=== PATIENT | male | born 1965 | race African-American/Black ===

== ENCOUNTER 2016-04-14 12:15 | Inpatient (IN) | payer OTHER ==
[2016-04-14 13:04] VITALS: BMI 25.5
--- NOTE | 2016-04-14 14:32 | HP ---
COWS - Scale Resting Pulse: 0= [place] 80 or Below Sweatin=Flushed/Facial Moisture Restless Observation: 3= Extraneous Movement Pupil Size: 2= Moderately Dilated Bone or Joint Aches: 2= Severe Diffuse Aches Runny Nose/ Eye Tearin= Runny Nose/Eyes GI Upset > 30mins: 3= Vomiting/Diarrhea Tremor Observation: 2= Slight Tremor Visible Yawning Observation: 2= >3x During Session Anxiety or Irritability: 2=Irritable/Anxious Goose Flesh Skin: 0=Smooth Skin COWS Score: 20 CIWA Score - CIWA Score Nausea/Vomitin Muscle Tremors: 3 Anxiety: 3 Agitation: 3 Paroxysmal Sweats: 2 Orientation: 0-Oriented Tacttile Disturbances: 2-Mild Itch/Numbness/Burn Auditory Disturbances: 2-Mild Harshness/Frighten Visual Disturbances: 2-Mild Sensitivity Headache: 2-Mild CIWA-Ar Total Score: 22 Admission ROS BHS - HPI Chief Complaint: I NEED HELP TO STOP USING HEROIN,ALCOHOL AND COCAINE,WITHDRAWAL SYMPTOM,LAST DETOX 08/05/14 TO 06/08/14 WEIGHT LOSS HIV SINCE 2001 NICOTINE DEPENDENCE LONGEST PERIOD OF SOBRIETY 2 YEARS LOW BACK PAIN Allergies/Adverse Reactions: Allergies Allergy/AdvReac Type Severity Reaction Status Date / Time No Known Allergies Allergy Verified 04/14/16 14:24 History of Present Illness: THIS 50 YEARS OLD MALE WITH HEROIN ,ALCOHOL,COCAINE DEPENDENCE FOR DETOX MENTIONED Exam Limitations: No Limitations - Ebola screening Have you traveled outside of the country in the last 21 days: No Have you had contact with anyone from an Ebola affected area: No Have you been sick,other than usual withdrawal symptoms: No Do you have a fever: No - Review of Systems Constitutional: Chills, Diaphoresis, Night Sweats, Changes in sleep, Weakness, Unintentional Wgt. Loss EENT: reports: Tearing, Nose Congestion Respiratory: reports: No Symptoms reported Cardiac: reports: Palpitations GI: reports: Diarrhea, Nausea, Vomiting, Abdominal cramping : reports: No Symptoms Reported Musculoskeletal: reports: Back Pain, Muscle Pain Integumentary: reports: Dryness Neuro: reports: Headache, Tremors Endocrine: reports: No Symptoms Reported Hematology: reports: No Symptoms Reported Psychiatric: reports: No Sypmtoms Reported Patient History - Patient Medical History Hx Anemia: No Hx Asthma: No Hx Chronic Obstructive Pulmonary Disease (COPD): No Hx Cancer: No Hx Cardiac Disorders: No Hx Congestive Heart Failure: No Hx Hypertension: No Hx Hypercholesterolemia: No Hx Pacemaker: No HX Cerebrovascular Accident: No Hx Seizures: No Hx Dementia: No Hx Diabetes: No Hx Gastrointestinal Disorders: No Hx Liver Disease: No Hx Genitourinary Disorders: No Hx Sexually Transmitted Disorders: No Hx Renal Disease (ESRD): No Hx Thyroid Disease: No Hx Human Immunodeficiency Virus (HIV): Yes (SINCE 2001) Hx Hepatitis C: No Hx Depression: No Hx Suicide Attempt: No Hx Bipolar Disorder: No Hx Schizophrenia: No Other Medical History: NO SUICIDAL,NO HOMICIDAL - Patient Surgical History Past Surgical History: No Hx Neurologic Surgery: No Hx Cataract Extraction: No Hx Cardiac Surgery: No Hx Lung Surgery: No Hx Breast Surgery: No Hx Breast Biopsy: No Hx Abdominal Surgery: No Hx Appendectomy: No Hx Cholecystectomy: No Hx Genitourinary Surgery: No Hx Section: No Hx Orthopedic Surgery: No Anesthesia Reaction: No - PPD History Previous Implant?: Yes Documented Results: Positive w/o proof Results: Needs CXR PPD to be Administered?: No - Smoking Cessation Smoking history: Current every day smoker Have you smoked in the past 12 months: Yes Aproximately how many cigarettes per day: 9 Hx Chewing Tobacco Use: No Initiated information on smoking cessation: Yes 'Breaking Loose' booklet given: 04/14/16 - Substance & Tx. History Hx Alcohol Use: Yes Hx Substance Use: Yes Substance Use Type: Alcohol, Cocaine, Heroin Hx Substance Use Treatment: Yes ([facility] TO 06/08/14) Family Disease History - Family Disease History Family Disease History: Other: Brother (DRUG/ALCOHOL,IN REMISSION), Sister (DRUG /ALCOHOL IN REMISSION) Admission Physical Exam S - Vital Signs Vital Signs: Vital Signs - 24 hr 04/14/16 13:03 Temperature 97.3 F L Pulse Rate 75 Respiratory 20 Rate Blood Pressure 147/77 - Physical General Appearance: Yes: Moderate Distress, Tremorous, Irritable, Sweating, Anxious HEENTM: Yes: Nasal Congestion Respiratory: Yes: Lungs Clear Neck: Yes: Within Normal Limits Breast: Yes: Within Normal Limits Cardiology: Yes: Regular Rhythm, Regular Rate, S1, S2 Abdominal: Yes: Normal Bowel Sounds, Non Tender, Flat, Soft Genitourinary: Yes: Within Normal Limits Back: Yes: Muscle Spasm Musculoskeletal: Yes: Back pain, Joint Stiffness, Muscle Pain Extremities: Yes: Tremors Neurological: Yes: broadcast operations director II-XII NML intact, Fully Oriented, Alert, Motor Strength 5/5 Integumentary: Yes: Dry Lymphatic: Yes: Within Normal Limits - Diagnostic (1) Opioid dependence with withdrawal Current Visit: Yes Status: Acute (2) Alcohol dependence with uncomplicated withdrawal Current Visit: Yes Status: Acute (3) Acquired immune deficiency syndrome (AIDS) Current Visit: No Status: Acute (4) Nicotine dependence Current Visit: No Status: Acute (5) Weight loss Current Visit: Yes Status: Acute (6) Low back pain Current Visit: Yes Status: Acute (7) PPD positive, treated Current Visit: Yes Status: Acute Cleared for Admission [facility] - Detox or Rehab [facility] Level of Care: Medically Managed Detox Regimen/Protocol: Methadone/Librium [facility] Breath Alcohol Content Breath Alcohol Content: 0 Urine Drug Screen - Results Drug Screen Negative: No Urine Drug Screen Results: EILEEN-Cocaine, OPI-Opiates
[2016-04-14] MEDS ORDERED: P-EPHED 60MG/TRIPROLIDI 2.5MG TABLET PO PRN (14:47)
[2016-04-14] MEDS ORDERED: diphenhydrAMINE HCL 50 MG CAPSULE PO PRN (14:47)
[2016-04-14] MEDS ORDERED: MAG HYDROX/AL HYDROX/SIMETH 30 ML UNIT-DOSE CUP PO PRN (14:47)
[2016-04-14] MEDS ORDERED: IBUPROFEN 400 MG TABLET (FP) PO PRN (14:47)
[2016-04-14] MEDS ORDERED: MAGNESIUM HYDROX 2400MG/30ML ORAL SUSPENSION 30 ML CUP PO PRN (14:47)
[2016-04-14] MEDS ORDERED: LOPERAMIDE HCL 2 MG CAPSULE PO PRN (14:47)
[2016-04-14] MEDS ORDERED: guaiFENesin/D-METHORPHAN HB 10 ML UNIT-DOSE CUPS PO PRN (14:47)
[2016-04-14] MEDS ORDERED: MENTHOL/PHENOL 1 EACH UD MM PRN (14:47)
[2016-04-14] MEDS ORDERED: hydrOXYzine PAMOATE 25 MG CAPSULE (FP) PO PRN (14:47)
[2016-04-14] MEDS ORDERED: MAGNESIUM CITRATE 300 ML BOTTLE PO PRN (14:47)
[2016-04-14] MEDS ORDERED: ACETAMINOPHEN 325 MG TABLET (FP) PO PRN (14:47)
[2016-04-14] MEDS ORDERED: chlordiazePOXIDE HCL 25 MG CAPSULE PO PRN (14:47)
[2016-04-14] MEDS ORDERED: chlordiazePOXIDE HCL 25 MG CAPSULE PO ONE (15:00)
[2016-04-14] MEDS ORDERED: METHADONE HCL 10 MG TABLET (FOR DETOX USE ONLY) PO ONE ×2 (15:01→23:00)
[2016-04-14] MEDS: chlordiazePOXIDE HCL 25 MG CAPSULE PO SCH ×2 (17:39→22:22)
[2016-04-14 19:24] LABS: PH,URINE 5.5 (5.0-8.0); URINE APPEARANCE CLEAR; URINE BILIRUBIN NEGATIVE (NEGATIVE); URINE BLOOD TRACE-INTA (NEGATIVE); URINE COLOR LT. YELLOW; URINE GLUCOSE (UA) TRACE (NEGATIVE); URINE KETONE NEGATIVE (NEGATIVE); URINE LEUK ESTERASE NEGATIVE (NEGATIVE); URINE NITRITE NEGATIVE (NEGATIVE); URINE PROTEIN TRACE (NEGATIVE); URINE UROBILINOGEN 0.2 E.U/dl E.U./dl (0.2-1.0)
[2016-04-14] MEDS: THIAMINE HCL 100 MG TABLET (FP) PO SCH (22:23)
[2016-04-15] MEDS: chlordiazePOXIDE HCL 25 MG CAPSULE PO SCH ×4 (05:28→22:38)
[2016-04-15] MEDS ORDERED: METHADONE HCL 10 MG TABLET (FOR DETOX USE ONLY) PO SCH (10:00)
[2016-04-15 10:02] LABS: MCHC 33.6 g/dl (32.0-35.9); MEAN CELL VOLUME 89.1 fl (80-96); MEAN PLT VOLUME 9.3 fl (7.5-11.1); PLATELET COUNT 207 K/MM3 (134-434); RDW 14.9 % (11.9-15.9); WHITE BLOOD COUNT 3.8 K/mm3 (4.0-10.0)
--- NOTE | 2016-04-15 10:20 | EKG ---
Test Reason : Blood Pressure : / mmHG Vent. Rate : 068 BPM Atrial Rate : 068 BPM P-R Int : 124 ms QRS Dur : 164 ms QT Int : 462 ms P-R-T Axes : 047 -43 -40 degrees QTc Int : 491 ms NORMAL SINUS RHYTHM LEFT AXIS DEVIATION LEFT VENTRICULAR HYPERTROPHY WITH QRS WIDENING ABNORMAL ECG NO PREVIOUS ECGS AVAILABLE Confirmed by ANTONIO HANKS MD ([id number]) on 04/15/2016 10:19:56 AM Referred By: Confirmed By:ANTONIO HANKS MD
--- NOTE | 2016-04-15 10:23 | EKG ---
Test Reason : Blood Pressure : / mmHG Vent. Rate : 059 BPM Atrial Rate : 059 BPM P-R Int : 126 ms QRS Dur : 146 ms QT Int : 456 ms P-R-T Axes : 021 -43 226 degrees QTc Int : 451 ms SINUS BRADYCARDIA LEFT AXIS DEVIATION LEFT BUNDLE BRANCH BLOCK preexcitatation syndrome possible WPW ABNORMAL ECG WHEN COMPARED WITH ECG OF 14-APR-2016 15:34, LEFT BUNDLE BRANCH BLOCK IS NOW PRESENT Reconfirmed by DEMARIO GOLD, ANTONIO ([id number]) on 04/15/2016 10:25:11 AM Referred By: Confirmed By:ANTONIO HANKS MD
[2016-04-15 10:31] LABS: ALBUMIN 3.2 g/dl (3.4-5.0); BILIRUBIN,TOTAL 0.4 mg/dL (0.2-1.0); CALCIUM 8.7 mg/dL (8.5-10.1); CREATININE 1.3 mg/dL (0.7-1.3); TOT PROT 7.8 g/dl (6.4-8.2)
[2016-04-15] MEDS: ATAZANAVIR SO4 300 MG CAPSULE PO SCH (10:40)
[2016-04-15] MEDS: PRENATAL VITAMINS W/ FOLIC ACID TABLET (FP) PO SCH (10:40)
[2016-04-15] MEDS: RITONAVIR 100 MG TABLET PO SCH (10:40)
[2016-04-15] MEDS: EMTRICITABINE 200MG/TENOFOVIR 300MG PO SCH (10:40)
--- NOTE | 2016-04-15 11:07 | PN ---
[facility] CIWA - CIWA Score Nausea/Vomitin-No Nausea/No Vomiting Muscle Tremors: 4-Moderate,w/Arms Extend Anxiety: 3 Agitation: 4-Moderately Restless Paroxysmal Sweats: 3 Orientation: 0-Oriented Tacttile Disturbances: 0-None Auditory Disturbances: 0-None Visual Disturbances: 0-None Headache: 1-Very Mild CIWA-Ar Total Score: 15 BHS COWS - Scale Resting Pulse: 0= [place] 80 or Below Sweatin=Flushed/Facial Moisture Restless Observation: 1= Difficult to Sit Still Pupil Size: 0= Normal to Room Light Bone or Joint Aches: 0= None Runny Nose/ Eye Tearin= Nasal Congestion GI Upset > 30mins: 1= Stomach Cramp Tremor Observation of Outstretched Hands: 2= Slight Tremor Visible Yawning Observation: 2= >3x During Session Anxiety or Irritability: 2=Irritable/Anxious Goose Flesh Skin: 3=Piloerection COWS Score: 14 [facility] Progress Note (SOAP) Subjective: agitation anxiety irritable sweats shakes interrupted sleep Objective: 04/15/16 11:06 Vital Signs Temperature 97 F L 04/15/16 10:02 Pulse Rate 63 04/15/16 10:02 Respiratory Rate 18 04/15/16 10:02 Blood Pressure 141/77 04/15/16 10:02 O2 Sat by Pulse Oximetry (%) Laboratory Tests 04/14/16 04/15/16 04/15/16 14:00 06:00 06:00 WBC 3.8 L RBC 4.38 Hgb 13.1 Hct 39.0 MCV 89.1 MCHC 33.6 RDW 14.9 Plt Count 207 MPV 9.3 Sodium 141 Potassium 4.0 Chloride 106 Carbon Dioxide 29 Anion Gap 6 L BUN 16 Creatinine 1.3 D Creat Clearance w eGFR 58.67 Random Glucose 106 Calcium 8.7 Total Bilirubin 0.4 D AST 28 ALT 24 Alkaline Phosphatase 86 Total Protein 7.8 D Albumin 3.2 L Urine Color Lt. yellow Urine Appearance Clear Urine pH 5.5 Ur Specific [place] >= 1.030 Urine Protein Trace H Urine Glucose (UA) Trace H Urine Ketones Negative Urine Blood Trace-inta Urine Nitrite Negative Urine Bilirubin Negative Urine Urobilinogen 0.2 e.u/dl Ur Leukocyte Esterase Negative RPR Titer 04/15/16 06:00 WBC RBC Hgb Hct MCV MCHC RDW Plt Count MPV Sodium Potassium Chloride Carbon Dioxide Anion Gap BUN Creatinine Creat Clearance w eGFR Random Glucose Calcium Total Bilirubin AST ALT Alkaline Phosphatase Total Protein Albumin Urine Color Urine Appearance Urine pH Ur Specific [place] Urine Protein Urine Glucose (UA) Urine Ketones Urine Blood Urine Nitrite Urine Bilirubin Urine Urobilinogen Ur Leukocyte Esterase RPR Titer Nonreactive awake/alert ambulating no acute distress Assessment: 04/15/16 11:06 withdrawal sx Plan: continue detox increase fluids
[2016-04-15] MEDS: THIAMINE HCL 100 MG TABLET (FP) PO SCH (22:39)
[2016-04-16] MEDS: chlordiazePOXIDE HCL 25 MG CAPSULE PO SCH ×2 (05:45→10:38)
[2016-04-16] MEDS ORDERED: ONDANSETRON *ODT* 4 MG TABLET SL ONE (08:30)
--- NOTE | 2016-04-16 09:49 | PN ---
[facility] CIWA - CIWA Score Nausea/Vomitin Muscle Tremors: 2 Anxiety: 3 Agitation: 3 Paroxysmal Sweats: 3 Orientation: 0-Oriented Tacttile Disturbances: 1-Very Mild Itch/Numbness Auditory Disturbances: 0-None Visual Disturbances: 0-None Headache: 0-None Present CIWA-Ar Total Score: 15 BHS COWS - Scale Resting Pulse: 0= [place] 80 or Below Sweatin= Chills/Flushing Restless Observation: 1= Difficult to Sit Still Pupil Size: 1= Pupils >than Normal Bone or Joint Aches: 1= Mild Discomfort Runny Nose/ Eye Tearin= Nasal Congestion GI Upset > 30mins: 1= Stomach Cramp Tremor Observation of Outstretched Hands: 1= Tremor [place], Not Seen Yawning Observation: 0= None Anxiety or Irritability: 1=Feels Anxious/Irritable Goose Flesh Skin: 0=Smooth Skin COWS Score: 8 BHS Progress Note (SOAP) Subjective: interrupted sleep, sweats, nausea, vomiting Objective: 04/16/16 09:48 Vital Signs Temperature 98.2 F 04/16/16 05:50 Pulse Rate 62 04/16/16 05:50 Respiratory Rate 18 04/16/16 05:50 Blood Pressure 108/70 04/16/16 05:50 O2 Sat by Pulse Oximetry (%) Laboratory Tests 04/14/16 04/15/16 04/15/16 14:00 06:00 06:00 WBC 3.8 L RBC 4.38 Hgb 13.1 Hct 39.0 MCV 89.1 MCHC 33.6 RDW 14.9 Plt Count 207 MPV 9.3 Sodium 141 Potassium 4.0 Chloride 106 Carbon Dioxide 29 Anion Gap 6 L BUN 16 Creatinine 1.3 D Creat Clearance w eGFR 58.67 Random Glucose 106 Calcium 8.7 Total Bilirubin 0.4 D AST 28 ALT 24 Alkaline Phosphatase 86 Total Protein 7.8 D Albumin 3.2 L Urine Color Lt. yellow Urine Appearance Clear Urine pH 5.5 Ur Specific [place] >= 1.030 Urine Protein Trace H Urine Glucose (UA) Trace H Urine Ketones Negative Urine Blood Trace-inta Urine Nitrite Negative Urine Bilirubin Negative Urine Urobilinogen 0.2 e.u/dl Ur Leukocyte Esterase Negative RPR Titer 04/15/16 06:00 WBC RBC Hgb Hct MCV MCHC RDW Plt Count MPV Sodium Potassium Chloride Carbon Dioxide Anion Gap BUN Creatinine Creat Clearance w eGFR Random Glucose Calcium Total Bilirubin AST ALT Alkaline Phosphatase Total Protein Albumin Urine Color Urine Appearance Urine pH Ur Specific [place] Urine Protein Urine Glucose (UA) Urine Ketones Urine Blood Urine Nitrite Urine Bilirubin Urine Urobilinogen Ur Leukocyte Esterase RPR Titer Nonreactive 04/16/16 14:52 pt aox3 in nad ambulating Assessment: 04/16/16 09:49 withdrawl sx's Plan: cont, detox increase fluids zofran prn.
[2016-04-16] MEDS ORDERED: METHADONE HCL 5 MG TABLET (FOR DETOX USE ONLY) PO SCH (10:00)
[2016-04-16] MEDS: METHADONE HCL 10 MG TABLET (FOR DETOX USE ONLY) PO SCH (10:37)
[2016-04-16] MEDS: PRENATAL VITAMINS W/ FOLIC ACID TABLET (FP) PO SCH (10:37)
[2016-04-16] MEDS: ATAZANAVIR SO4 300 MG CAPSULE PO SCH (10:37)
[2016-04-16] MEDS: EMTRICITABINE 200MG/TENOFOVIR 300MG PO SCH (10:38)
[2016-04-16] MEDS: RITONAVIR 100 MG TABLET PO SCH (10:38)
[2016-04-16] MEDS: chlordiazePOXIDE 5 MG CAPSULE PO SCH ×2 (17:55→23:18)
[2016-04-16] MEDS: THIAMINE HCL 100 MG TABLET (FP) PO SCH (22:33)
[2016-04-17] MEDS: chlordiazePOXIDE 5 MG CAPSULE PO SCH ×2 (05:40→10:31)
[2016-04-17 10:04] VITALS: BP 131/74; PULSE 64; TEMP 98.1
--- NOTE | 2016-04-17 10:06 | PN ---
BHS Progress Note (SOAP) Subjective: ALERT,IRRITABLE,ANXIOUS,PAIN IN THE BODY,BACK,INTERRUPTED SLEEP Objective: 04/17/16 10:06 Vital Signs Temperature 98.1 F 04/17/16 10:03 Pulse Rate 64 04/17/16 10:03 Respiratory Rate 20 04/17/16 10:03 Blood Pressure 131/74 04/17/16 10:03 O2 Sat by Pulse Oximetry (%) 05/14/16 18:37 Assessment: 05/14/16 18:38 WITHDRAWAL SYMPTOM Plan: CONTINUE DETOX
[2016-04-17] MEDS: PRENATAL VITAMINS W/ FOLIC ACID TABLET (FP) PO SCH (10:30)
[2016-04-17] MEDS: ATAZANAVIR SO4 300 MG CAPSULE PO SCH (10:30)
[2016-04-17] MEDS: METHADONE HCL 10 MG TABLET (FOR DETOX USE ONLY) PO SCH (10:30)
[2016-04-17] MEDS: RITONAVIR 100 MG TABLET PO SCH (10:30)
[2016-04-17] MEDS: EMTRICITABINE 200MG/TENOFOVIR 300MG PO SCH (10:31)
--- NOTE | 2016-04-17 11:44 | DS ---
[facility] Detox Discharge Summary Admission Date: 04/14/16 Discharge Date: 04/17/16 - History Present History: Alcohol Dependence, Opioid Dependence - Physical Exam Results Vital Signs: Vital Signs Temperature 98.1 F 04/17/16 10:03 Pulse Rate 64 04/17/16 10:03 Respiratory Rate 20 04/17/16 10:03 Blood Pressure 131/74 04/17/16 10:03 O2 Sat by Pulse Oximetry (%) Pertinent Admission Physical Exam Findings: pt desires ama departure 2/2 choosing to leave due to discomfort over inability to adhere to unit regulations - Medication Discharge Medications: Ambulatory Orders Atazanavir [Reyataz -] 300 mg PO DAILY 05/21/13 Emtricitabine/Tenofovir [Truvada -] 1 tab PO DAILY 05/21/13 Ritonavir [Norvir] 100 mg PO DAILY 05/21/13 - AMA Did Patient Leave Against Medical Advice: Yes
[2016-04-17] MEDS ORDERED: chlordiazePOXIDE HCL 10 MG CAPSULE PO SCH (17:00)
[2016-04-18] MEDS ORDERED: METHADONE HCL 5 MG TABLET (FOR DETOX USE ONLY) PO SCH (06:00)
[2016-04-18] MEDS ORDERED: METHADONE HCL 10 MG TABLET (FOR DETOX USE ONLY) PO SCH (10:00)
[2016-04-19] MEDS ORDERED: METHADONE HCL 5 MG TABLET (FOR DETOX USE ONLY) PO SCH (06:00)
== END 2016-04-17 11:59 | disposition left against medical advice (07) | DRG 770 ==
LOC: YASAS 12:15 → Y6N 14:38
PROVIDERS: ADMIT Internal Medicine Addiction Medicine; ATTEND Internal Medicine Addiction Medicine
PROC: HZ2ZZZZ Detoxification Services for Substance Abuse Treatment (ICD-10-PCS; principal; 2016-04-14)
DX: F11.23 Opioid dependence with withdrawal (principal); F10.230 Alcohol dependence with withdrawal, uncomplicated; F17.210 Nicotine dependence, cigarettes, uncomplicated; B20 Human immunodeficiency virus [HIV] disease; M54.5 Low back pain; R76.11 Nonspecific reaction to tuberculin skin test without active tuberculosis; Z87.898 Personal history of other specified conditions
CPT/HCPCS: 36415; 80053; 81003; 85027; 86593; 93005; 93010